=== PATIENT | male | born 1965 | race Caucasian/White ===

== ENCOUNTER 2022-01-21 16:12 | Observation (INO) ==
[2022-01-21] MEDS ORDERED: PANTOPRAZOLE 40 MG VIAL IV STA (16:52)
[2022-01-21] MEDS ORDERED: SODIUM CHLORIDE 0.9% 1,000 ML IV STA (16:52)
[2022-01-21 17:14] LABS: Basophils % 0.5 % (0.0-0.8); Eosinophils % 0.5 % (0.00-10.9); Hematocrit 43.1 VOL% (42.0-52.0); Hemoglobin 15.2 GM/DL (14.0-18.0); Immature Granulocytes % 0.3 %; Immature Granulocytes Absolute 0.02 #; Lymphocytes # 1.3 10*3/uL (1.4-4.0); Lymphocytes % 18.9 % (21.2-54.2); Mean Corpuscular HGB Conc 35.3 GM/DL (32-36); Mean Corpuscular Volume 86.7 FL (87-102); Mean Platelet Volume 9.5 FL (9.6-12.0); Monocytes # 0.7 10*3/uL (0.11-0.8); Monocytes % 10.2 % (1.7-12.7); Neutrophils % 69.6 % (38.7-73.9); Platelet Count 265 T/CUMM (130-400); Red Blood Count 4.97 MC/CUMM (3.8-5.5); Red Cell Distribution Width 13.5 % (9.3-17.3); White Blood Count 6.7 T/CUMM (4-12)
[2022-01-21 17:26] LABS: INR 1.1; PT Patient Result 11.9 SECS (10.5-12.0); Partial Thromboplastin Time 34.5 SECS (23.7-32.9)
[2022-01-21 17:29] LABS: Alanine Aminotransferase 36 U/L (16-61); Albumin 4.2 G/DL (3.4-5.0); Alkaline Phosphatase 74 U/L (45-117); Aspartate Amino Transferase 19 U/L (0-37); Bilirubin,Total < 0.39 MG/DL (0.20-1.00); Blood Urea Nitrogen 23 MG/DL (7-18); Calcium 9.6 MG/DL (8.5-10.1); Carbon Dioxide 28 MMOL/L (21-32); Chloride 105 MMOL/L (98-107); Glucose 95 MG/DL (74-106); Osmolality,Calculated 284.3 MOS/KG (273-304); Potassium 3.2 MMOL/L (3.5-5.1); Sodium 141 MMOL/L (136-145); Total Protein 7.8 G/DL (6.4-8.2)
[2022-01-21] MEDS ORDERED: SULFAMETHOX/TRIMETHOPRIM 800-160 MG TABLET ONE (19:06)
[2022-01-21] MEDS ORDERED: cloNIDine 0.1 MG TABLET PO STA (20:19)
[2022-01-21] MEDS ORDERED: amLODIPine 5 MG TABLET PO STA (20:19)
[2022-01-21] MEDS ORDERED: ONDANSETRON 4 MG/2 ML VIAL IV PRN (20:19)
[2022-01-21] MEDS ORDERED: ACETAMINOPHEN 325 MG TABLET PO PRN (20:19)
[2022-01-21] MEDS: LOSARTAN/HCTZ 50-12.5 MG TABLET PO SCH (20:36)
[2022-01-21] MEDS: SOTALOL 80 MG TABLET PO SCH (22:07)
[2022-01-21] MEDS: SODIUM CHLORIDE 0.9% 1,000 ML IV SCH (22:08)
[2022-01-22 05:49] LABS: Basophils % 0.6 % (0.0-0.8); Eosinophils # 0.1 10*3/uL (0.0-0.87); Eosinophils % 1.7 % (0.00-10.9); Hematocrit 38.5 VOL% (42.0-52.0); Hemoglobin 13.5 GM/DL (14.0-18.0); Immature Granulocytes % 0.4 %; Immature Granulocytes Absolute 0.02 #; Lymphocytes # 1.3 10*3/uL (1.4-4.0); Lymphocytes % 27.4 % (21.2-54.2); Mean Corpuscular HGB Conc 35.1 GM/DL (32-36); Mean Corpuscular Volume 88.5 FL (87-102); Mean Platelet Volume 9.4 FL (9.6-12.0); Monocytes # 0.6 10*3/uL (0.11-0.8); Monocytes % 12.1 % (1.7-12.7); Neutrophils % 57.8 % (38.7-73.9); Platelet Count 190 T/CUMM (130-400); Red Blood Count 4.35 MC/CUMM (3.8-5.5); Red Cell Distribution Width 13.4 % (9.3-17.3); White Blood Count 4.6 T/CUMM (4-12)
[2022-01-22] MEDS: SODIUM CHLORIDE 0.9% 1,000 ML IV SCH ×2 (06:27→15:36)
[2022-01-22] MEDS ORDERED: NON-FORMULARY MEDICATION (Omeprazole 20 mg Capsule,Delayed Release(Dr/Ec)) PO SCH (09:00)
[2022-01-22] MEDS ORDERED: PANTOPRAZOLE 40 MG TABLET PO SCH (09:00)
[2022-01-22] MEDS: LOSARTAN/HCTZ 50-12.5 MG TABLET PO SCH (11:07)
[2022-01-22] MEDS: AMIODARONE 200 MG TABLET PO SCH (11:50)
[2022-01-22] MEDS: POTASSIUM CHLORIDE 10 MEQ TABLET PO SCH ×2 (11:50→21:45)
[2022-01-22] MEDS: SOTALOL 80 MG TABLET PO SCH ×2 (11:50→21:44)
[2022-01-22] MEDS: COENZYME Q10 100 MG CAPSULE PO SCH (11:51)
[2022-01-22] MEDS: FUROSEMIDE 40 MG TABLET PO SCH (17:07)
[2022-01-22] MEDS ORDERED: SIMVASTATIN 40 MG TABLET PO SCH (21:00)
[2022-01-22] MEDS ORDERED: lisinopriL 20 MG TABLET PO SCH (21:00)
[2022-01-22] MEDS: PANTOPRAZOLE 40 MG TABLET PO SCH (21:44)
[2022-01-22] MEDS: lisinopriL 20 MG TABLET PO SCH (21:47)
[2022-01-23] MEDS: SODIUM CHLORIDE 0.9% 1,000 ML IV SCH ×3 (01:39→16:01)
[2022-01-23 04:29] LABS: Basophils % 0.8 % (0.0-0.8); Eosinophils # 0.1 10*3/uL (0.0-0.87); Eosinophils % 2.1 % (0.00-10.9); Hemoglobin 13.7 GM/DL (14.0-18.0); Immature Granulocytes % 0.2 %; Immature Granulocytes Absolute 0.01 #; Lymphocytes # 1.5 10*3/uL (1.4-4.0); Lymphocytes % 28.1 % (21.2-54.2); Mean Corpuscular HGB Conc 34.3 GM/DL (32-36); Mean Corpuscular Volume 89.3 FL (87-102); Mean Platelet Volume 9.8 FL (9.6-12.0); Monocytes # 0.5 10*3/uL (0.11-0.8); Monocytes % 9.9 % (1.7-12.7); Neutrophils % 58.9 % (38.7-73.9); Platelet Count 208 T/CUMM (130-400); Red Blood Count 4.48 MC/CUMM (3.8-5.5); Red Cell Distribution Width 13.4 % (9.3-17.3); White Blood Count 5.2 T/CUMM (4-12)
[2022-01-23 04:53] LABS: Potassium 3.9 MMOL/L (3.5-5.1)
[2022-01-23] MEDS ORDERED: LEVOTHYROXINE 112 MCG TABLET PO SCH (06:30)
[2022-01-23] MEDS ORDERED: LACTATED RINGERS 1,000 ML IV SCH (08:00)
[2022-01-23] MEDS ORDERED: hydroCHLOROthiazide 25 MG TABLET PO SCH (09:00)
[2022-01-23] MEDS ORDERED: OLMESARTAN 20 MG TABLET PO SCH (09:00)
[2022-01-23] MEDS ORDERED: LIDOCAINE 2% 5 ML VIAL ONE (11:57)
[2022-01-23] MEDS ORDERED: propofoL 200 MG/20 ML VIAL IV ONE (11:57)
[2022-01-23 12:42] VITALS: BP 154/89
[2022-01-23] MEDS: SOTALOL 80 MG TABLET PO SCH (13:48)
[2022-01-23] MEDS: FUROSEMIDE 40 MG TABLET PO SCH (13:48)
[2022-01-23] MEDS: COENZYME Q10 100 MG CAPSULE PO SCH (13:49)
[2022-01-23] MEDS: PANTOPRAZOLE 40 MG TABLET PO SCH (13:49)
[2022-01-23] MEDS: AMIODARONE 200 MG TABLET PO SCH (13:49)
[2022-01-23] MEDS: lisinopriL 20 MG TABLET PO SCH (13:50)
[2022-01-23] MEDS: POTASSIUM CHLORIDE 10 MEQ TABLET PO SCH (13:50)
== END 2022-01-23 14:19 | disposition home or self-care (01) ==
LOC: N.EDINP 16:12 → N.ED 16:12 → N.5E 20:18
PROVIDERS: ADMIT Internal Medicine; ATTEND Internal Medicine